=== PATIENT | female | born 1965 | race African-American/Black ===

== ENCOUNTER → 2017-08-05 | Outpatient (CLI) | payer MEDICARE, OTHER ==
--- NOTE | 2017-08-05 17:17 | WOMENS IMAGING REPORT ---
EXAM DESCRIPTION: 3D SCREENING MAMMO BILAT COMPLETED DATE/TIME: 08/05/2017 1:32 pm REASON FOR STUDY: ROUTINE SCREENING; Z12.31 Z12.31 ENCNTR SCREEN MAMMOGRAM FOR MALIGNANT NEOPLASM O F VIVIAN COMPARISON: Multiple since 2008 TECHNIQUE: Standard craniocaudal and mediolateral oblique views of each breast recorded using digita l acquisition and breast tomosynthesis. LIMITATIONS: None. FINDINGS: No masses, calcifications or architectural distortion. No areas of suspicion. Read with the assistance of CAD. .[facility] - R2 Cenova Version 1.3 .[facility] Imaging - R2 Cenova Version 1.3 .[facility] Imaging - R2 Cenova Version 2.4 .[facility] - R2 Cenova Version 2.4 .[facility] - R2 [employer] Version 9.2 IMPRESSION: NORMAL MAMMOGRAM. BIRADS 1. BREAST DENSITY: c. The breasts are heterogeneously dense, which may obscure small masses. BIRAD: 1 NEGATIVE RECOMMENDATION: ROUTINE SCREENING Please continue yearly bilateral screening tomosynthesis in July 2018 COMMENT: The patient has been notified of the results by letter per SA requirements. Additional no tification policies are in place for contacting patient with suspicious or incomplete findings. Quality ID #[id number]: The [employer] recommends an annual screening mammogram for women aged 40 years or over. This facility utilizes a reminder system to ensure that all patients receive reminder letters, and/or direct phone calls for appointments. This includes reminders for routine scr eening mammograms, diagnostic mammograms, or other Breast Imaging Interventions when appropriate. Th is patient will be placed in the appropriate reminder system. The [employer] (ACR) has developed recommendations for screening MRI of the breast s in certain patient populations, to be used in conjunction with mammography. Breast MRI surveillanc e may be appropriate for women with more than 20% lifetime risk of developing breast cancer as deter mined by genetic testing, significant family history of the disease, or history of mantle radiation f or Hodgkins Disease. ACR Practice Guidelines 2008. DBT Technology DBT is a type of tomographic mammography. With conventional mammography, overlapping breast tissue ma y make lesions difficult to detect, even with good compression. DBT uses an x-ray tube that rotates a round the breast, taking images at different angles. These images are then combined to create thin sl ices of the breast that the radiologist can view as a 3D reconstruction. The [employer] unit can perform full-field digital mammograms (2D imaging); or DBT (3D imaging); or both, in a combination mode that quickly performs both the mammogram and the tomosynthesis scan while the breast is still compressed. PQRS 6045F: Fluoroscopic imaging is not utilized for breast tomosynthesis. TECHNICAL DOCUMENTATION: FINDING NUMBER: (1) ASSESSMENT: (1) JOB ID: [id number] [employer]- All Rights Reserved
== END ==
LOC: WI 13:36
PROVIDERS: ATTEND Obstetrics & Gynecology
DX: Z12.31 Encounter for screening mammogram for malignant neoplasm of breast (principal)
CPT/HCPCS: 77063; G0202; 77067

== ENCOUNTER 2018-03-21 10:27 | Emergency (ER) | payer MEDICARE, OTHER ==
--- NOTE | 2018-03-21 11:04 | ER Document Report ---
ED General - General Chief Complaint: Sore Throat Stated Complaint: NECK SWELLING Time Seen by Provider: 03/21/18 10:40 Mode of Arrival: Medic Information source: Patient Notes: 52-year-old female with history of rheumatoid arthritis, hypertension presents via EMS from [facility] with complaint of neck swelling, sore throat. Patient states that she awoke this morning with a sore throat. She states she went [facility] and noticed that the swelling was rapidly increasing. She denies difficulty swallowing, fever, chills. She does admit to associated ear pain. She has not had any sick contacts. TRAVEL OUTSIDE OF THE [place] IN LAST 30 DAYS: No - HPI Onset: This morning Onset/Duration: Sudden Quality of pain: Burning Severity: Mild Associated symptoms: Earache. denies: Chest pain, Nonproductive cough, Fever, Headache, Hurts to breath, Shortness of breath Exacerbated by: Other - Swallowing Relieved by: Denies Similar symptoms previously: No Recently seen / treated by doctor: Yes - Related Data Allergies/Adverse Reactions: Unable to Assess Allergy (Unverified 03/21/18 10:40) Past Medical History - General Information source: Patient, Office - Social History Smoking Status: Current Some Day Smoker Frequency of alcohol use: Occasional Drug Abuse: Marijuana Lives with: Family Family History: Reviewed & Not Pertinent Patient has suicidal ideation: No Patient has homicidal ideation: No - Past Medical History Cardiac Medical History: Reports: Hx Hypertension Renal/ Medical History: Denies: Hx Peritoneal Dialysis Musculoskeltal Medical History: Reports Hx Arthritis Review of Systems - Review of Systems Notes: REVIEW OF SYSTEMS: CONSTITUTIONAL : Denies fever, chills, or sweats. Denies recent illness. Denies weight loss, recent hospitalizations. EENT: Denies visual changes, eye pain. Denies nasal or sinus congestion or discharge. Denies oral lesions, difficulty swallowing. CARDIOVASCULAR: Denies chest pain. Denies palpitations. Denies lower extremity edema. RESPIRATORY: Denies cough, cold, or chest congestion. Denies shortness of breath, wheezing. GASTROINTESTINAL: Denies abdominal pain or distention. Denies nausea, vomiting , or diarrhea. Denies blood in vomitus, stools, or per rectum. Denies black, tarry stools. Denies constipation. GENITOURINARY: Denies difficulty urinating, painful urination, frequency, blood in urine, or vaginal discharge. MUSCULOSKELETAL: Denies back or neck pain or stiffness. Denies joint pain or swelling. SKIN: Denies rash, lesions or sores. HEMATOLOGIC : Denies easy bruising or bleeding. LYMPHATIC: Denies swollen glands. NEUROLOGICAL: Denies confusion or altered mental status. Denies passing out or loss of consciousness. Denies dizziness or lightheadedness. Denies headache. Denies weakness or paralysis. Denies problems difficulty with ambulation, slurred speech. Denies sensory loss, numbness, or tingling. Denies seizures. PSYCHIATRIC: Denies anxiety or stress. Denies depression, suicidal ideation, or homicidal ideation. Denies visual or auditory hallucinations. Physical Exam - Vital signs Vitals: Temp Pulse Resp BP Pulse Ox 98.1 F 58 L 15 171/94 H 100 03/21/18 10:32 03/21/18 10:32 03/21/18 10:32 03/21/18 10:32 03/21/18 10:32 - Notes Notes: PHYSICAL EXAMINATION: GENERAL: Well-appearing, well-nourished and in no acute distress. HEAD: Atraumatic, normocephalic. EYES: Pupils equal round and reactive to light, extraocular movements intact, conjunctiva are normal. ENT: Mild erythema, no tonsillar swelling or exudates. Bilateral submandibular lymphadenopathy. No sublingual edema, dental caries, dental abscess. NECK: Normal range of motion. No stridor LUNGS: Breath sounds clear to auscultation bilaterally and equal. No wheezes rales or rhonchi. HEART: Regular rate and rhythm without murmurs ABDOMEN: Soft, nontender, nondistended abdomen. No guarding, no rebound. No masses appreciated. Female : deferred Musculoskeletal: Normal range of motion, no pitting or edema. No cyanosis. NEUROLOGICAL: Cranial nerves grossly intact. Normal speech, normal gait. Normal sensory, motor exams PSYCH: Normal mood, normal affect. SKIN: Warm, Dry, normal turgor, no rashes or lesions noted. Course - Re-evaluation Re-evalutation: 03/21/18 16:31 Laboratory 03/21/18 03/21/18 10:49 10:49 WBC 6.9 RBC 4.44 Hgb 11.9 L Hct 35.7 L MCV 80 MCH 26.7 L MCHC 33.3 RDW 15.2 H Plt Count 263 Seg Neutrophils % 58.9 Lymphocytes % 32.4 Monocytes % 6.3 Eosinophils % 1.6 Basophils % 0.8 Absolute Neutrophils 4.1 Absolute Lymphocytes 2.2 Absolute Monocytes 0.4 Absolute Eosinophils 0.1 Absolute Basophils 0.1 Sodium 143.6 Potassium 4.6 Chloride 102 Carbon Dioxide 34 H Anion Gap 8 BUN 18 Creatinine 1.14 Est GFR ( Amer) > 60 Est GFR (Non-Af Amer) 50 L Glucose 123 H Calcium 10.[address] 03/21/18 10:40 IMPRESSION: Tonsillitis. Significant narrowing of the nasopharynx. No abscess. 03/21/18 16:33 52-year-old female with history of rheumatoid arthritis, hypertension presents via EMS from [facility] with complaint of neck swelling, sore throat. Patient states that she awoke this morning with a sore throat. She states she went [facility] and noticed that the swelling was rapidly increasing. She denies difficulty swallowing, fever, chills. She does admit to associated ear pain. She has not had any sick contacts. No signs reviewed upon arrival patient is afebrile, mildly hypertensive but not hypoxic. She is in no respiratory distress. Exam is significant for mild tonsillar erythema without exudates, and submandibular lymphadenopathy. CT neck was obtained and showed no retropharyngeal abscess, evidence of Gary's angina but did show tonsillitis. Patient received IV Zosyn, Solu-Medrol during her ED course. On reevaluation patient is still resting comfortably, in no distress and is tolerating fluids. Patient be discharged home with a prescription for Augmentin and recommendations to follow up with her primary care physician in 3- 5 days. Patient provided the opportunity to ask questions, and express concerns. Discharge instructions discussed. Patient is agreeable with discharge home. Return indications explained and discussed with the patient who displays understanding. Patient encouraged to return to the emergency department immediately with any concerns. 03/21/18 16:33 - Vital Signs Vital signs: Temp Pulse Resp BP Pulse Ox 98.9 F 57 L 18 141/83 H 100 03/21/18 14:33 03/21/18 14:33 03/21/18 14:33 03/21/18 14:33 03/21/18 14:33 - Laboratory Result Diagrams: 03/21/18 10:49 03/21/18 10:49 Laboratory results interpreted by me: 03/21/18 03/21/18 10:49 10:49 Hgb 11.9 L Hct 35.7 L MCH 26.7 L RDW 15.2 H Carbon Dioxide 34 H Est GFR (Non-Af Amer) 50 L Glucose 123 H - Diagnostic Test Radiology reviewed: Image reviewed, Reports reviewed Discharge - Discharge Clinical Impression: Acute bacterial tonsillitis Condition: Good Disposition: HOME, SELF-CARE Instructions: Sore Throat ([facility]), Tonsillitis ([facility]) Additional Instructions: Return immediately to the emergency department if you experience difficulty swallowing or you are unable to take your antibiotics. Follow up with your physician tomorrow for further care or return to the ED IMMEDIATELY if symptoms worsen or new concerns occur. If you cannot afford to follow up with your primary care physician a list of low cost clinics have been provided at the end of your discharge papers as well. Prescriptions: Amox Tr/Potassium Clavulanate [Augmentin 875-125 Tablet] 1 tab PO BID 10 Days # 20 tablet Ibuprofen [Motrin 600 Mg Tablet] 600 mg PO TID #15 tablet Prednisone [Deltasone 20 mg Tablet] 3 tab PO DAILY 5 Days #15 tablet Referrals: MANDI HERMOSILLO MD [ACTIVE STAFF] - Follow up as needed
[2018-03-21 11:20] LABS: ANION GAP 8 (5-19); BLOOD UREA NITROGEN 18 mg/dL (7-20); CARBON DIOXIDE 34 mmol/L (22-30); CHLORIDE 102 mmol/L (98-107); GLUCOSE 123 mg/dL (75-110); POTASSIUM 4.6 mmol/L (3.6-5.0); SODIUM 143.6 mmol/L (137-145)
[2018-03-21] MEDS ORDERED: AMPICILLIN SOD/SULBACTAM 3 GM VIAL IV ONE (11:59)
[2018-03-21] MEDS ORDERED: DEXAMETHASONE 4 MG TABLET PO ONE (12:01)
--- NOTE | 2018-03-21 12:04 | RADIOLOGY REPORT (SQ) ---
EXAM DESCRIPTION: CT SOFT TISSUE NECK WITH COMPLETED DATE/TIME: 03/21/2018 11:47 am REASON FOR STUDY: concern for ludwigs COMPARISON: None. TECHNIQUE: Post IV contrasted scanning from skull base through lung apices with review of bone, soft tissue and lung windows. Reconstructed coronal and sagittal MPR images reviewed. All images stored on PACS. All CT scanners at this facility use dose modulation, iterative reconstruction, and/or weight based d osing when appropriate to reduce radiation dose to as low as reasonably achievable (ALARA). [facility]: Dose Right [facility]: CareDose [facility]: Dose Right [facility]: Teradose 4D [facility]: Lost My Name CONTRAST TYPE AND DOSE: contrast/concentration: Isovue 370.00 mg/ml; Total Contrast Delivered: 75.0 ml; Total Saline Delivered: 55.0 ml RENAL FUNCTION: BUN 18 creatinine 1.1 RADIATION DOSE: CT Rad equipment meets quality standard of care and radiation dose reduction techniq ues were employed. CTDIvol: 9.7 mGy. DLP: 286 mGy-cm. . LIMITATIONS: None. FINDINGS: SKULL BASE: Intact. MAJOR SALIVARY GLANDS: No solid or cystic masses. No inflammatory changes. LYMPHADENOPATHY: No adenopathy. MUCOSAL MASSES OR ASYMMETRY: There is swelling of the palatine tonsillar pillars bilaterally and fair ly symmetric. This results in significant narrowing of the inferior nasopharynx. No evidence of abs cess. LARYNX/CORDS: No abnormal findings. VASCULAR STRUCTURES: The major vessels are patent. LUNG APICES: Clear. BONES: Intact. THYROID: Incidental 1.5 cm left low-density lesion, probably a colloid cyst. PARANASAL SINUSES: Clear. OTHER: No other significant finding. IMPRESSION: Tonsillitis. Significant narrowing of the nasopharynx. No abscess. TECHNICAL DOCUMENTATION: JOB ID: [id number] Quality ID # [id number]: Final reports with documentation of one or more dose reduction techniques (e.g., Au tomated exposure control, adjustment of the mA and/or kV according to patient size, use of iterative reconstruction technique) 2010 [employer]- All Rights Reserved Reading location - IP/workstation name: [email or web address]
[2018-03-21 12:15] LABS: ABSOLUTE BASOPHILS # (AUTO) 0.1 10^3/uL (0.0-0.2); ABSOLUTE EOSINOPHILS # (AUTO) 0.1 10^3/uL (0.0-0.6); ABSOLUTE LYMPHOCYTES (AUTO) 2.2 10^3/uL (0.5-4.7); ABSOLUTE MONOCYTES (AUTO) 0.4 10^3/uL (0.1-1.4); ABSOLUTE NEUT (AUTO) 4.1 10^3/uL (1.7-8.2); BASOPHILS % (AUTO) 0.8 % (0-2); EOSINOPHILS % (AUTO) 1.6 % (0-6); HEMATOCRIT 35.7 % (36.0-47.0); HEMOGLOBIN 11.9 g/dL (12.0-15.5); LYMPHOCYTES % (AUTO) 32.4 % (13-45); MEAN CORPUSCULAR HEMOGLOBIN 26.7 pg (27.0-33.4); MEAN CORPUSCULAR HGB CONC 33.3 g/dL (32.0-36.0); MEAN CORPUSCULAR VOLUME 80 fl (80-97); MONOCYTES % (AUTO) 6.3 % (3-13); PLATELET COUNT 263 10^3/uL (150-450); RED BLOOD COUNT 4.44 10^6/uL (3.72-5.28); RED CELL DISTRIBUTION WIDTH 15.2 % (11.5-14.0); SEGMENTED NEUTROPHILS % (AUTO) 58.9 % (42-78); TOTAL CELLS COUNTED % (AUTO) 100 %; WHITE BLOOD COUNT 6.9 10^3/uL (4.0-10.5)
[2018-03-21 14:38] VITALS: BP 141/83
== END 2018-03-21 14:37 | disposition home or self-care (01) ==
LOC: ER 10:27
DX: J03.80 Acute tonsillitis due to other specified organisms (principal); B96.89 Other specified bacterial agents as the cause of diseases classified elsewhere; R59.0 Localized enlarged lymph nodes; H92.09 Otalgia, unspecified ear; I10 Essential (primary) hypertension; F17.200 Nicotine dependence, unspecified, uncomplicated
CPT/HCPCS: 99284; 96365; 36415; 85025; 80048; 70491; A9270; J0295

== ENCOUNTER 2018-04-24 09:22 | Observation (INO) | payer MEDICARE, OTHER ==
--- NOTE | 2018-04-24 09:50 | ER Document Report ---
ED Medical Screen (RME) - General Chief Complaint: Allergic Reaction Stated Complaint: FACIAL SWELLING Time Seen by Provider: 04/24/18 09:50 Notes: This is a 52-year-old female to the emergency department chief complaint of neck swelling, confusion, "fogginess". Patient states that she has on Humira. Was seen here a month ago and diagnosed with tonsillitis. States that the swelling has persisted. Pain is radiating from the neck down into her chest and back. Hurts to move her neck. Denies any throat pain however. I have greeted and performed a rapid initial assessment of this patient. A comprehensive ED assessment and evaluation of the patient, analysis of test results and completion of the medical decision making process will be conducted by additional ED providers. TRAVEL OUTSIDE OF THE [place] IN LAST 30 DAYS: No - Related Data Allergies/Adverse Reactions: Unable to Assess Allergy (Verified 04/24/18 09:24) Past Medical History - Social History Chew tobacco use (# tins/day): No Frequency of alcohol use: None Drug Abuse: None Family history: Reviewed & Not Pertinent - Past Medical History Cardiac Medical History: Reports: Hx Hypertension Renal/ Medical History: Denies: Hx Peritoneal Dialysis Musculoskeltal Medical History: Reports Hx Arthritis Review of Systems - Review of Systems Notes: Constitutional: denies: Chills, Diaphoresis, Fever, Malaise, Weakness EENT: Large amount of swelling to the neck. Pain in the back. No difficulty swallowing. No throat pain. No vision loss. Cardiovascular: denies: Palpitations, Heart racing, Orthopnea, Dyspnea, Chest pain Respiratory: denies: Cough, Hurts to breathe, Wheezing, Shortness of breath Gastrointestinal: denies: Abdominal pain, Diarrhea, Nausea, Vomiting, Black stools, bright red blood in stool Genitourinary: denies: Burning, Dysuria, Discharge, Frequency, Flank pain, Hematuria Musculoskeletal: Planing of upper neck and back pain. Hematologic/Lymphatic: denies: Anemia, Easy bleeding, Easy bruising, Blood clots Neurological/Psychological: denies: Confusion, Dementia, Depression, Loss of consciousness Skin: No lesions, no masses, no skin breakdown, no abscesses Physical Exam - Vital signs Vitals: Temp Pulse Resp BP Pulse Ox 99.0 F 102 H 20 127/83 H 99 04/24/18 09:37 04/24/18 09:37 04/24/18 09:37 04/24/18 09:37 04/24/18 09:37 Interpretation: Tachycardic - HEENT Head: Normocephalic Notes: There is significant amount of lymphadenopathy noted in the anterior neck mostly on the right. There is no pharyngeal edema or erythema. There is drainage clear mixed with blood coming out of the right ear. - Respiratory Respiratory status: No respiratory distress Chest status: Nontender Breath sounds: Normal Chest palpation: Normal - Cardiovascular Rhythm: Tachycardia Heart sounds: Normal auscultation Murmur: No - Abdominal Inspection: Normal Distension: No distension Bowel sounds: Normal Tenderness: Nontender Organomegaly: No organomegaly - Back Back: Normal, Tender - Tenderness to the left trapezius muscles - Extremities General upper extremity: Normal inspection, Nontender, Normal color, Normal ROM , Normal temperature General lower extremity: Normal inspection, Nontender, Normal color, Normal ROM , Normal temperature, Normal weight bearing. No: Jono's sign - Neurological Neuro grossly intact: Yes Cognition: Normal Orientation: AAOx4 Fidel Coma Scale Eye Opening: Spontaneous Fidel Coma Scale Verbal: Oriented [place] Coma Scale Motor: Obeys Commands [place] Coma Scale Total: 15 Speech: Normal Motor strength normal: LUE, RUE, LLE, RLE Sensory: Normal - Skin Skin Temperature: Warm Skin Moisture: Dry Skin Color: Other - Dry and red lesions on bilateral wrist areas. Course - Vital Signs Vital signs: Temp Pulse Resp BP Pulse Ox 99.0 F 102 H 19 132/103 H 98 04/24/18 09:37 04/24/18 09:37 04/24/18 11:03 04/24/18 10:39 04/24/18 11:03 - Laboratory Result Diagrams: 04/24/18 10:05 04/24/18 10:05 Laboratory results interpreted by me: 04/24/18 04/24/18 10:05 10:05 Hgb 11.5 L Hct 35.1 L MCV 79 L MCH 25.8 L RDW 14.3 H Est GFR (Non-Af Amer) 51 L Doctor's Discharge - Discharge Referrals: COOKIE JENKINS FNP [Primary Care Provider] - Follow up as needed
[2018-04-24 10:21] LABS: ABSOLUTE EOSINOPHILS # (AUTO) 0.2 10^3/uL (0.0-0.6); ABSOLUTE LYMPHOCYTES (AUTO) 2.2 10^3/uL (0.5-4.7); ABSOLUTE MONOCYTES (AUTO) 0.5 10^3/uL (0.1-1.4); ABSOLUTE NEUT (AUTO) 3.3 10^3/uL (1.7-8.2); BASOPHILS % (AUTO) 0.5 % (0-2); EOSINOPHILS % (AUTO) 2.6 % (0-6); HEMATOCRIT 35.1 % (36.0-47.0); HEMOGLOBIN 11.5 g/dL (12.0-15.5); LYMPHOCYTES % (AUTO) 35.7 % (13-45); MEAN CORPUSCULAR HEMOGLOBIN 25.8 pg (27.0-33.4); MEAN CORPUSCULAR HGB CONC 32.8 g/dL (32.0-36.0); MEAN CORPUSCULAR VOLUME 79 fl (80-97); MONOCYTES % (AUTO) 7.4 % (3-13); PLATELET COUNT 303 10^3/uL (150-450); RED BLOOD COUNT 4.45 10^6/uL (3.72-5.28); RED CELL DISTRIBUTION WIDTH 14.3 % (11.5-14.0); SEGMENTED NEUTROPHILS % (AUTO) 53.8 % (42-78); TOTAL CELLS COUNTED % (AUTO) 100 %; WHITE BLOOD COUNT 6.2 10^3/uL (4.0-10.5)
[2018-04-24 10:36] LABS: ALANINE AMINOTRANSFERASE 25 U/L (9-52); ALBUMIN 4.1 g/dL (3.5-5.0); ALKALINE PHOSPHATASE 48 U/L (38-126); ANION GAP 11 (5-19); ASPARTATE AMINO TRANSFERASE 21 U/L (14-36); BILIRUBIN,DIRECT 0.2 mg/dL (0.0-0.4); BILIRUBIN,TOTAL 0.5 mg/dL (0.2-1.3); BLOOD UREA NITROGEN 13 mg/dL (7-20); CALCIUM 9.8 mg/dL (8.4-10.2); CARBON DIOXIDE 30 mmol/L (22-30); CHLORIDE 101 mmol/L (98-107); GLUCOSE 102 mg/dL (75-110); SODIUM 142.3 mmol/L (137-145); TOTAL PROTEIN 7.6 g/dL (6.3-8.2)
--- NOTE | 2018-04-24 11:26 | RADIOLOGY REPORT (SQ) ---
EXAM DESCRIPTION: CT HEAD WITHOUT COMPLETED DATE/TIME: 04/24/2018 11:05 am REASON FOR STUDY: confusion COMPARISON: None. TECHNIQUE: Axial images acquired through the brain without intravenous contrast. Images reviewed wi th bone, brain and subdural windows. Additional sagittal and coronal reconstructions were generated. Images stored on PACS. All CT scanners at this facility use dose modulation, iterative reconstruction, and/or weight based d osing when appropriate to reduce radiation dose to as low as reasonably achievable (ALARA). [facility]: Dose Right [facility]: CareDose [facility]: Dose Right [facility]: Teradose 4D [facility]: Molecule Synth RADIATION DOSE: mGy. LIMITATIONS: None. FINDINGS: VENTRICLES: Normal size and contour. CEREBRUM: No masses. No hemorrhage. No midline shift. No evidence for acute infarction. Normal gra y/white matter differentiation. No areas of low density in the white matter. CEREBELLUM: No masses. No hemorrhage. No alteration of density. No evidence for acute infarction. EXTRAAXIAL SPACES: No fluid collections. No masses. ORBITS AND GLOBE: No intra- or extraconal masses. Normal contour of globe without masses. CALVARIUM: No fracture. PARANASAL SINUSES: No fluid or mucosal thickening. SOFT TISSUES: No mass or hematoma. OTHER: No other significant finding. IMPRESSION: NORMAL BRAIN CT WITHOUT CONTRAST. EVIDENCE OF ACUTE STROKE: NO. COMMENT: Quality ID # [id number]: Final reports with documentation of one or more dose reduction techniques (e.g., Automated exposure control, adjustment of the mA and/or kV according to patient size, use of iterative reconstruction technique) TECHNICAL DOCUMENTATION: JOB ID: [id number] [email or web address]- All Rights Reserved Reading location - IP/workstation name: [email or web address]
--- NOTE | 2018-04-24 12:05 | RADIOLOGY REPORT (SQ) ---
EXAM DESCRIPTION: CT SOFT TISSUE NECK WITH COMPLETED DATE/TIME: 04/24/2018 11:10 am REASON FOR STUDY: neck swelling abnd pain COMPARISON: CT brain same date CT chest same date TECHNIQUE: Post IV contrasted scanning from skull base through lung apices with review of bone, soft tissue and lung windows. Reconstructed coronal and sagittal MPR images reviewed. All images stored on PACS. All CT scanners at this facility use dose modulation, iterative reconstruction, and/or weight based d osing when appropriate to reduce radiation dose to as low as reasonably achievable (ALARA). [facility]: Dose Right [facility]: CareDose [facility]: Dose Right [facility]: Teradose 4D [facility]: [employer] CONTRAST TYPE AND DOSE: contrast/concentration: Isovue 350.00 mg/ml; Total Contrast Delivered: 80.0 ml; Total Saline Delivered: 55.0 ml RENAL FUNCTION: Creatinine 1.1 RADIATION DOSE: CT Rad equipment meets quality standard of care and radiation dose reduction techniq ues were employed. CTDIvol: 10.1 - 18.3 mGy. DLP: 952 mGy-cm. . LIMITATIONS: None. FINDINGS: SKULL BASE: Inferior brain parenchyma in the field of view is unremarkable MAJOR SALIVARY GLANDS: Normal size parotid and submandibular glands. No salivary stones or gross earle ivary masses. No submandibular or parotid duct calculi are identified. LYMPHADENOPATHY: No adenopathy. MUCOSAL MASSES OR ASYMMETRY: No mucosal masses or asymmetry. LARYNX/CORDS: No abnormal findings. VASCULAR STRUCTURES: The major vessels are patent. LUNG APICES: Clear. BONES: Mild diffuse degenerative changes in the cervical spine and C5-6 and C6-7 THYROID: Stable 14 mm nodule left lower pole thyroid gland PARANASAL SINUSES: Clear. OTHER: There is very mild skin thickening and subcutaneous edema along the upper neck soft tissues in the submandibular region without well-circumscribed abscess. These findings were discussed with Dr. Torres IMPRESSION: Mild skin thickening and subcutaneous edema along the submandibular region from focal ce llulitis. No abscess identified. TECHNICAL DOCUMENTATION: JOB ID: [id number] Quality ID # [id number]: Final reports with documentation of one or more dose reduction techniques (e.g., Au tomated exposure control, adjustment of the mA and/or kV according to patient size, use of iterative reconstruction technique) 2010 [employer]- All Rights Reserved Reading location - IP/workstation name: [email or web address]
--- NOTE | 2018-04-24 12:09 | RADIOLOGY REPORT (SQ) ---
EXAM DESCRIPTION: CT CHEST WITH COMPLETED DATE/TIME: 04/24/2018 11:10 am REASON FOR STUDY: chest neck and back pain and swelling COMPARISON: CT soft tissue neck today, and 03/21/2018 TECHNIQUE: CT scan of the chest performed using helical scanning technique with dynamic intravenous contrast injection. Images reviewed with lung, soft tissue and bone windows. Reconstructed coronal and sagittal MPR images reviewed. All images stored on PACS. All CT scanners at this facility use dose modulation, iterative reconstruction, and/or weight based d osing when appropriate to reduce radiation dose to as low as reasonably achievable (ALARA). [facility]: Dose Right [facility]: CareDose [facility]: Dose Right [facility]: Teradose 4D [facility]: [email or web address] CONTRAST TYPE AND DOSE: 80 mL of IV Omnipaque 350- low osmolar. RENAL FUNCTION: Creatinine 1.1 RADIATION DOSE: 10 mGy . LIMITATIONS: None. FINDINGS: LUNGS AND PLEURA: Minimal bibasilar atelectasis. No fluffy alveolar infiltrates worrisome for pulmonary edema or pneumonia. No pleural effusion. No pneumothorax. HILAR AND MEDIASTINAL STRUCTURES: No identified masses or abnormal nodes. HEART AND VASCULAR STRUCTURES: No aneurysm or dissection. No central pulmonary emboli. No pericardi al effusion. HARDWARE: None in the chest. UPPER ABDOMEN: Tiny stones in the gallbladder THYROID AND OTHER SOFT TISSUES: No masses. No adenopathy. BONES: No significant finding. OTHER: Report called to Dr. Torres IMPRESSION: UNREMARKABLE CT OF THE CHEST WITH IV CONTRAST. TECHNICAL DOCUMENTATION: JOB ID: [id number] Quality ID # [id number]: Final reports with documentation of one or more dose reduction techniques (e.g., Au tomated exposure control, adjustment of the mA and/or kV according to patient size, use of iterative reconstruction technique) 2010 [employer]- All Rights Reserved Reading location - IP/workstation name: [email or web address]
--- NOTE | 2018-04-24 13:02 | ER Document Report ---
ED General - General TRAVEL OUTSIDE OF THE [place] IN LAST 30 DAYS: No <ELI MONTE - Last Filed: 04/24/18 14:05> <ANGIE RUSSELL - Last Filed: 04/24/18 14:57> - General Chief Complaint: Allergic Reaction Stated Complaint: FACIAL SWELLING Time Seen by Provider: 04/24/18 09:50 Notes: This 52-year-old female patient with rheumatoid arthritis on Humira and methotrexate and blood pressure medication. She was seen here on 03/21/2018 complaining of neck swelling and sore throat. She did have a contrasted CT scan of the neck which was read as tonsillitis with significant narrowing of the nasopharynx. No abscess. She was treated with a 10 day course of Augmentin, and prednisone 60 mg daily for 5 days. She states she got better until about 2 weeks ago when she states her hands started peeling and she began having pain and swelling in the submandibular region bilaterally again. She also reports being in physical therapy where she was pulling down on marcia like equipment, and injured her left trapezius and scapular muscles. She complains of a painful swollen area in the muscles. She also reports that she has been breaking out on her upper back, her abdomen and chest, and had similar lesions on the thenar and hyperthenar aspects of her palms and volar wrists which progressed to now being dry scaling areas. She did see her primary care provider 3 days ago to complain about the left trapezius and scapular muscles pain and swelling. She got prescriptions for Tylenol with codeine and Flexeril. She did not mention the rash on her hands or other parts of her body when she saw her primary care provider 3 days ago. She also did not mention the 2 week history of worsening pain and swelling in her submandibular regions. When I told her that I thought the rash on her hands was very suspicious for eczema, she got quite defensive stating she had never had anything like that on her hands before. A contrasted CT scan was again done today and read as mild skin thickening and subcutaneous edema along the upper neck soft tissues in the submandibular regions from a focal cellulitis. CBC and chemistries on 03/21/2018 and again today are both normal and essentially unchanged. (ANGIE RUSSELL) - Related Data Allergies/Adverse Reactions: Unable to Assess Allergy (Verified 04/24/18 09:24) Past Medical History - General Information source: Patient - Social History Smoking Status: Never Smoker Cigarette use (# per day): No Chew tobacco use (# tins/day): No Frequency of alcohol use: None Drug Abuse: None Lives with: Family Family History: Reviewed & Not Pertinent Patient has suicidal ideation: No Patient has homicidal ideation: No - Past Medical History Cardiac Medical History: Reports: Hx Hypertension Renal/ Medical History: Denies: Hx Peritoneal Dialysis Musculoskeletal Medical History: Reports Hx Arthritis <ELI MONTE - Last Filed: 04/24/18 14:05> Review of Systems - Review of Systems Constitutional: No symptoms reported EENT: See HPI, Other - neck swelling Cardiovascular: No symptoms reported Respiratory: No symptoms reported Gastrointestinal: No symptoms reported Genitourinary: No symptoms reported Female Genitourinary: No symptoms reported Musculoskeletal: See HPI, Muscle pain, Muscle stiffness Skin: See HPI, Rash Hematologic/Lymphatic: No symptoms reported Neurological/Psychological: No symptoms reported -: Yes All other systems reviewed and negative <ELI MONTE - Last Filed: 04/24/18 14:05> Physical Exam <MELLELI - Last Filed: 04/24/18 14:05> <ANGIE RUSSELL - Last Filed: 04/24/18 14:57> - Vital signs Vitals: Temp Pulse Resp BP Pulse Ox 99.0 F 102 H 20 127/83 H 99 04/24/18 09:37 04/24/18 09:37 04/24/18 09:37 04/24/18 09:37 04/24/18 09:37 - Notes Notes: Physical Exam: General: Alert, appears well. HEENT: Normocephalic. Atraumatic. PERRL. Extraocular movements intact. Oropharynx clear. Airway is patent. Neck: Supple. Non-tender. Bilateral submandibular swelling with associated tenderness to palpation. Respiratory: No respiratory distress. Clear and equal breath sounds bilaterally. Cardiovascular: Regular rate and rhythm. Abdominal: Normal Inspection. Non-tender. No distension. Normal Bowel Sounds. Back: Left trapezius is somewhat swollen and tender with palpation. Left scapula musculature tenderness to palpation. Patien's pain response is exaggerated. No deformity or step off. Extremities: Moves all four extremities. Upper extremities: Normal inspection. Normal ROM. Lower extremities: Normal inspection. No edema. Normal ROM. Neurological: Normal cognition. AAOx4. Normal speech. Psychological: Exaggerated pain response Skin: Papular rash, some with whiteheads across the face, chest, abdomen, and upper back. Over the volar wrist/thenar eminence/hyperthenar eminence there is a dry scaly rash consistent with eczema. (ELI MONTE) Course - Laboratory Result Diagrams: 04/24/18 10:05 04/24/18 10:05 <ELI MONTE - Last Filed: 04/24/18 14:05> - Laboratory Result Diagrams: 04/24/18 10:05 04/24/18 10:05 - Diagnostic Test Radiology reviewed: Image reviewed, Reports reviewed - CT scan of the head is unremarkable, chest with contrast unremarkable, neck with contrast showed mild skin thickening and subcutaneous edema along the upper neck soft tissues in the submandibular regions from focal cellulitis. - Consults Dr. Chamorro Consulted provider: will come to ER <ANGIE RUSSELL - Last Filed: 04/24/18 14:57> - Vital Signs Vital signs: Temp Pulse Resp BP Pulse Ox 99.0 F 102 H 13 134/100 H 89 L 04/24/18 09:37 04/24/18 09:37 04/24/18 13:01 04/24/18 13:01 04/24/18 13:01 - Laboratory Laboratory results interpreted by me: 04/24/18 04/24/18 10:05 10:05 Hgb 11.5 L Hct 35.1 L MCV 79 L MCH 25.8 L RDW 14.3 H Est GFR (Non-Af Amer) 51 L Discharge <ELI MONTE - Last Filed: 04/24/18 14:05> - Discharge Admitting Provider: Hospitalist Unit Admitted: Medical Floor <ANGIE RUSSELL - Last Filed: 04/24/18 14:57> - Discharge Clinical Impression: Cellulitis of submandibular region, Viral rash, Immunosuppressed status, Erythematous rash Trapezius muscle strain Qualifiers: Encounter type: initial encounter Laterality: left Qualified Code(s): S46.812A - Strain of other muscles, fascia and tendons at shoulder and upper arm level, left arm, initial encounter Condition: Stable Disposition: ADMITTED OBSERVATION Scribe Attestation: 04/24/18 13:39 I personally performed the services described in the documentation, reviewed and edited the documentation which was dictated to the scribe in my presence, and it accurately records my words and actions. (ANGIE RUSSELL) Scribe Documentation - Scribe Written by Scribe:: Kaitlyn Tenorio, 04/24/2018 1410 acting as scribe for :: Isa <ELI MONTE - Last Filed: 04/24/18 14:05>
[2018-04-24] MEDS ORDERED: ACETAMINOPHEN 325 MG TABLET PO PRN (14:30)
[2018-04-24] MEDS ORDERED: PROMETHAZINE HCL INJ 25 MG/1 ML VIAL IV PRN (14:30)
[2018-04-24] MEDS ORDERED: TEMAZEPAM 7.5 MG CAPSULE PO PRN (14:30)
[2018-04-24] MEDS ORDERED: ENOXAPARIN SODIUM INJ 40 MG/0.4 ML DISP.SYRIN SUBCUT ONE (16:00)
[2018-04-24] MEDS: OXYCODONE-ACETAMINOPHEN 5-325 MG TABLET PO PRN ×2 (16:43→23:12)
[2018-04-24] MEDS ORDERED: CYCLOBENZAPRINE HCL 10 MG TABLET PO PRN (19:28)
--- NOTE | 2018-04-24 19:28 | PDOC H&P ---
History of Present Illness Admission Date/PCP: 04/24/18 14:55 JASMINA GOODMAN Patient complains of: Neck pain and sore throat and rash History of Present Illness: MARILYN BOCANEGRA is a 52 year old female This patient presents to the emergency room with multiple vague complaints of neck pain and sore throat and shoulder pain and swelling in generalized rashes. Patient was somewhat uncooperative in exam. She had been seen in the emergency room on March 21 and she was thought to have tonsillitis at the time and she was treated with a 10 day course of Augmentin and prednisone. She apparently got better until 2 weeks ago when she says she started having symptoms again. She states that her swelling is small however CT scan reveals mild skin thickening and subcutaneous edema along the upper neck soft tissue in the left submandibular region from a focal cellulitis. No other significant findings except for the rash that patient Patient does have a history of rheumatoid arthritis and she is on immunosuppressants including adalimumab as well as methotrexate. W Past Medical History Cardiac Medical History: Reports: Hypertension Musculoskeltal Medical History: Reports: Arthritis Past Surgical History Past Surgical History: Reports: None Social History Information Source: Patient Lives with: Family Smoking Status: Never Smoker - Advance Directive Resuscitation Status: Full Code Family History Family History: Reviewed & Not Pertinent Parental Family History Reviewed: Yes Children Family History Reviewed: Yes Sibling(s) Family History Reviewed.: Yes Medication/Allergy Home Medications: Acetaminophen with Codeine [Tylenol #3 Tablet] 1 tab PO Q6 04/24/18 Adalimumab [Humira] 40 mg SQ [id number] 04/24/18 Ammonium Lactate [Lac-Hydrin 12% Lotion 225Gm/Bottle] 1 applic TP BID 04/24/18 Cyclobenzaprine HCl [Flexeril 10 mg Tablet] 10 mg PO Q8 04/24/18 Lisinopril [Prinivil] 20 mg PO DAILY 04/24/18 Methotrexate Sodium [Methotrexate] 15 mg PO PAL@1000 04/24/18 Triamcinolone Acetonide [Aristocort 0.1% Cream 15 gm] 1 applic TP BID 04/24/18 Allergies/Adverse Reactions: Unable to Assess Allergy (Verified 04/24/18 09:24) Review of Systems All systems: reviewed and no additional remarkable complaints except as stated Physical Exam Vital Signs: Temp Pulse Resp BP Pulse Ox 99.0 F 102 H 16 134/100 H 98 04/24/18 09:37 04/24/18 09:37 04/24/18 19:00 04/24/18 13:01 04/24/18 19:00 General appearance: PRESENT: no acute distress, other - older looking than stated age Head exam: PRESENT: atraumatic, normocephalic Eye exam: PRESENT: conjunctiva pink, EOMI, PERRLA. ABSENT: scleral icterus Mouth exam: PRESENT: dry mucosa Throat exam: PRESENT: other - limited exam as patient uncooperative Neck exam: ABSENT: carotid bruit, JVD, lymphadenopathy, thyromegaly Respiratory exam: PRESENT: clear to auscultation maria c. ABSENT: rales, rhonchi, wheezes GI/Abdominal exam: PRESENT: normal bowel sounds, soft. ABSENT: distended, guarding, mass, organolmegaly, rebound, tenderness Rectal exam: PRESENT: deferred Neurological exam: PRESENT: alert, awake, oriented to person, oriented to place , oriented to time, oriented to situation, CN II-XII grossly intact. ABSENT: motor sensory deficit Psychiatric exam: PRESENT: anxious Skin exam: PRESENT: rash, vesicles Results Laboratory Results: 04/24/18 10:05 04/24/18 10:05 MCV 79 fl (80-97) L 04/24/18 10:05 MCH 25.8 pg (27.0-33.4) L 04/24/18 10:05 MCHC 32.8 g/dL (32.0-36.0) 04/24/18 10:05 RDW 14.3 % (11.5-14.0) H 04/24/18 10:05 Seg Neutrophils % 53.8 % (42-78) 04/24/18 10:05 Lymphocytes % 35.7 % (13-45) 04/24/18 10:05 Monocytes % 7.4 % (3-13) 04/24/18 10:05 Eosinophils % 2.6 % (0-6) 04/24/18 10:05 Basophils % 0.5 % (0-2) 04/24/18 10:05 Absolute Neutrophils 3.3 10^3/uL (1.7-8.2) 04/24/18 10:05 Absolute Lymphocytes 2.2 10^3/uL (0.5-4.7) 04/24/18 10:05 Absolute Monocytes 0.5 10^3/uL (0.1-1.4) 04/24/18 10:05 Absolute Eosinophils 0.2 10^3/uL (0.0-0.6) 04/24/18 10:05 Absolute Basophils 0.0 10^3/uL (0.0-0.2) 04/24/18 10:05 Chloride 101 mmol/L (98-107) 04/24/18 10:05 Carbon Dioxide 30 mmol/L (22-30) 04/24/18 10:05 Anion Gap 11 (5-19) 04/24/18 10:05 Est GFR ( Amer) > 60 (>60) 04/24/18 10:05 Est GFR (Non-Af Amer) 51 (>60) L 04/24/18 10:05 Glucose 102 mg/dL (75-110) 04/24/18 10:05 Calcium 9.8 mg/dL (8.4-10.2) 04/24/18 10:05 Total Bilirubin 0.5 mg/dL (0.2-1.3) 04/24/18 10:05 AST 21 U/L (14-36) 04/24/18 10:05 ALT 25 U/L (9-52) 04/24/18 10:05 Alkaline Phosphatase 48 U/L (38-126) 04/24/18 10:05 Total Protein 7.6 g/dL (6.3-8.2) 04/24/18 10:05 Albumin 4.1 g/dL (3.5-5.0) 04/24/18 10:05 Impressions: Head CT 04/24/18 09:52 IMPRESSION: NORMAL BRAIN CT WITHOUT CONTRAST. EVIDENCE OF ACUTE STROKE: NO. Soft Tissue Neck CT 04/24/18 09:52 IMPRESSION: Mild skin thickening and subcutaneous edema along the submandibular region from focal cellulitis. No abscess identified. Chest CT 04/24/18 09:53 IMPRESSION: UNREMARKABLE CT OF THE CHEST WITH IV CONTRAST. Assessment & Plan - Diagnosis (1) Cellulitis of submandibular region Is this a current diagnosis for this admission?: Yes Plan: We will place on clindamycin (2) Erythematous rash Is this a current diagnosis for this admission?: Yes Plan: Possibly eczema. Will refer to dermatology as outpatient if needed (3) Immunosuppressed status Is this a current diagnosis for this admission?: Yes Plan: Patient is on Humira as well as methotrexate (4) Trapezius muscle strain Qualifiers: Encounter type: initial encounter Laterality: left Qualified Code(s): S46.812A - Strain of other muscles, fascia and tendons at shoulder and upper arm level, left arm, initial encounter Is this a current diagnosis for this admission?: Yes Plan: ill place on muscle relaxant as well as NSAID as needed - Time Time Spent: 30 to 50 Minutes Medications reviewed and adjusted accordingly: Yes Anticipated discharge: Home Within: within 24 hours - Inpatient Certification Based on my medical assessment, after consideration of the patient's comorbidities, presenting symptoms, or acuity I expect that the services needed warrant INPATIENT care.: Yes Medical Necessity: Need Close Monitoring Due to Risk of Patient Decompensation, Risk of Complication if Not Cared For in Hospital
[2018-04-24] MEDS: PREDNISONE 20 MG TABLET PO SCH (22:50)
[2018-04-24] MEDS: TRIAMCINOLONE ACETONIDE 0.1% CREAM 15 GM TOP SCH (22:56)
[2018-04-24] MEDS: CLINDAMYCIN HCL 150 MG CAPSULE PO SCH (23:40)
[2018-04-24] MEDS ORDERED: FLUCONAZOLE 100 MG TABLET PO ONE (23:45)
[2018-04-25] MEDS: CLINDAMYCIN HCL 150 MG CAPSULE PO SCH ×3 (00:23→11:20)
[2018-04-25] MEDS: OXYCODONE-ACETAMINOPHEN 5-325 MG TABLET PO PRN ×2 (05:18→11:20)
[2018-04-25 06:47] LABS: HEMATOCRIT 31.6 % (36.0-47.0); HEMOGLOBIN 10.6 g/dL (12.0-15.5); MEAN CORPUSCULAR HEMOGLOBIN 26.2 pg (27.0-33.4); MEAN CORPUSCULAR HGB CONC 33.5 g/dL (32.0-36.0); MEAN CORPUSCULAR VOLUME 78 fl (80-97); PLATELET COUNT 273 10^3/uL (150-450); RED BLOOD COUNT 4.04 10^6/uL (3.72-5.28); RED CELL DISTRIBUTION WIDTH 14.2 % (11.5-14.0); WHITE BLOOD COUNT 5.5 10^3/uL (4.0-10.5)
[2018-04-25] MEDS ORDERED: LISINOPRIL 10 MG TABLET PO SCH (10:00)
[2018-04-25] MEDS ORDERED: DOCUSATE SODIUM 100 MG CAPSULE PO SCH (10:00)
[2018-04-25] MEDS ORDERED: (PENDING PHARMACY ID) (Lisinopril [Prinivil] 20 MG) PO SCH (10:00)
[2018-04-25] MEDS ORDERED: ENOXAPARIN SODIUM INJ 40 MG/0.4 ML DISP.SYRIN SUBCUT SCH (10:00)
[2018-04-25] MEDS: TRIAMCINOLONE ACETONIDE 0.1% CREAM 15 GM TOP SCH (10:06)
[2018-04-25] MEDS: PREDNISONE 20 MG TABLET PO SCH (10:07)
[2018-04-25 11:48] VITALS: BP 121/61
--- NOTE | 2018-04-25 12:45 | PDOC DISCHARGE SUMMARY ---
General - Admit/Disc Date/PCP Admission Date/Primary Care Provider: 04/24/18 14:55 JASMINA GOODMAN Discharge Date: 04/25/18 - Discharge Diagnosis (1) Cellulitis of submandibular region Is this a current diagnosis for this admission?: Yes (2) Erythematous rash Is this a current diagnosis for this admission?: Yes (3) Immunosuppressed status Is this a current diagnosis for this admission?: Yes (4) Trapezius muscle strain Is this a current diagnosis for this admission?: Yes - Additional Information Resuscitation Status: Full Code Discharge Diet: As Tolerated Discharge Activity: Activity As Tolerated Prescriptions: Oxycodone HCl/Acetaminophen [Percocet 5-325 mg Tablet] 1 tab PO Q6HP PRN #14 tablet PRN Reason: Clindamycin HCl [Cleocin 150 mg Capsule] 300 mg PO Q6 #56 capsule Prednisone [Deltasone 20 mg Tablet] 40 mg PO DAILY #10 tablet Home Medications: Acetaminophen with Codeine [Tylenol #3 Tablet] 1 tab PO Q6 04/24/18 Adalimumab [Humira Pen] 40 mg SQ [id number] 04/24/18 Ammonium Lactate [Lac-Hydrin 12% Lotion 225Gm/Bottle] 1 applic TP BID 04/24/18 Cyclobenzaprine HCl [Flexeril 10 mg Tablet] 10 mg PO Q8 04/24/18 Lisinopril [Prinivil] 20 mg PO DAILY 04/24/18 Methotrexate Sodium [Methotrexate] 15 mg PO PAL@1000 04/24/18 Triamcinolone Acetonide [Aristocort 0.1% Cream] 1 applic TP BID 04/24/18 Clindamycin HCl [Cleocin 150 mg Capsule] 300 mg PO Q6 #56 capsule 04/25/18 Oxycodone HCl/Acetaminophen [Percocet 5-325 mg Tablet] 1 tab PO Q6HP PRN #14 tablet 04/25/18 Prednisone [Deltasone 20 mg Tablet] 40 mg PO DAILY #10 tablet 04/25/18 History of Present Illness History of Present Illness: MARILYN BOCANEGRA is a 52 year old female This patient presents to the emergency room with multiple vague complaints of neck pain and sore throat and shoulder pain and swelling in generalized rashes. Patient was somewhat uncooperative in exam. She had been seen in the emergency room on March 21 and she was thought to have tonsillitis at the time and she was treated with a 10 day course of Augmentin and prednisone. She apparently got better until 2 weeks ago when she says she started having symptoms again. She states that her swelling is small however CT scan reveals mild skin thickening and subcutaneous edema along the upper neck soft tissue in the left submandibular region from a focal cellulitis. No other significant findings except for the rash that patient Patient does have a history of rheumatoid arthritis and she is on immunosuppressants including adalimumab as well as methotrexate. W Hospital Course Hospital Course: Patient was admitted for overnight observation due to complaints of difficulty with swallowing and sore throat. See H&P for full details. She was started on clindamycin for possible mild cellulitis although she had had a recent tonsillitis that was treated with antibiotics. Patient also had a rash which she said recently erupted and she also complained of muscle strain and spasm in the left trapezius area. Patient was started on prednisone and did not really seem to make a difference as high symptoms of muscle spasm we improved and she felt a lot better today. With no further deterioration in her status and with hemodynamic stability patient is been discharged home and she has been advised to follow-up with her PCP, ENT as well as supervisor [employer]. Physical Exam Vital Signs: Temp Pulse Resp BP Pulse Ox 98.4 F 89 18 121/61 100 04/25/18 11:47 04/25/18 11:47 04/25/18 11:47 04/25/18 11:47 04/25/18 11:47 Intake & Output 04/24/18 04/25/18 04/26/18 06:59 06:59 06:59 Intake Total 480 Balance 480 Weight 64.6 kg General appearance: PRESENT: no acute distress, well-developed, other - L facial swelling Head exam: PRESENT: atraumatic, normocephalic Eye exam: PRESENT: conjunctiva pink, EOMI, PERRLA. ABSENT: scleral icterus Ear exam: PRESENT: normal external ear exam Mouth exam: PRESENT: moist, tongue midline Neck exam: ABSENT: carotid bruit, JVD, lymphadenopathy, thyromegaly Respiratory exam: PRESENT: clear to auscultation maria c. ABSENT: rales, rhonchi, wheezes Cardiovascular exam: PRESENT: RRR. ABSENT: diastolic murmur, rubs, systolic murmur Pulses: PRESENT: normal dorsalis pedis pul Vascular exam: PRESENT: normal capillary refill GI/Abdominal exam: PRESENT: normal bowel sounds, soft. ABSENT: distended, guarding, mass, organolmegaly, rebound, tenderness Rectal exam: PRESENT: deferred Extremities exam: PRESENT: full ROM. ABSENT: calf tenderness, clubbing, pedal edema Neurological exam: PRESENT: alert, awake, oriented to person, oriented to place , oriented to time, oriented to situation, CN II-XII grossly intact. ABSENT: motor sensory deficit Psychiatric exam: PRESENT: appropriate affect, normal mood. ABSENT: homicidal ideation, suicidal ideation Skin exam: PRESENT: dry, intact, rash - Scattered maculopapular rashes which actually have improved in the last 24 hours with some vesicles, warm. ABSENT: cyanosis Results Laboratory Results: 04/25/18 06:19 04/25/18 06:19 WBC 5.5 RBC 4.04 Hgb 10.6 L Hct 31.6 L MCV 78 L MCH 26.2 L MCHC 33.5 RDW 14.2 H Plt Count 273 Impressions: Head CT 04/24/18 09:52 IMPRESSION: NORMAL BRAIN CT WITHOUT CONTRAST. EVIDENCE OF ACUTE STROKE: NO. Soft Tissue Neck CT 04/24/18 09:52 IMPRESSION: Mild skin thickening and subcutaneous edema along the submandibular region from focal cellulitis. No abscess identified. Chest CT 04/24/18 09:53 IMPRESSION: UNREMARKABLE CT OF THE CHEST WITH IV CONTRAST. Qualifiers - * PATIENT BEING DISCHARGED WITH ANY OF THE FOLLOWING DIAGNOSIS: No Plan Time Spent: Less than 30 Minutes
== END 2018-04-25 14:30 | disposition home or self-care (01) ==
LOC: ER 09:22 → EH 14:55 → 2N 20:20
PROVIDERS: ADMIT Internal Medicine; ATTEND Internal Medicine
DX: K12.2 Cellulitis and abscess of mouth (principal); L53.8 Other specified erythematous conditions; S46.812A Strain of other muscles, fascia and tendons at shoulder and upper arm level, left arm, initial encounter; X50.9XXA Other and unspecified overexertion or strenuous movements or postures, initial encounter; Y93.B1 Activity, exercise machines primarily for muscle strengthening; Y92.89 Other specified places as the place of occurrence of the external cause; M06.9 Rheumatoid arthritis, unspecified; Z79.899 Other long term (current) drug therapy
CPT/HCPCS: 99285; 96372; 36415 ×2; 85025; 85027; 80053; 70450; 70491; 71260; G0378 ×2; A9270 ×10; J1650 ×2; J3490 ×4; J7512

== ENCOUNTER → 2018-08-06 | Outpatient (CLI) | payer MEDICARE, OTHER ==
--- NOTE | 2018-08-06 15:06 | WOMENS IMAGING REPORT ---
EXAM DESCRIPTION: 3D SCREENING MAMMO BILAT COMPLETED DATE/TIME: 08/06/2018 1:54 pm REASON FOR STUDY: SCREENING MAMMO Z12.31 ENCNTR SCREEN MAMMOGRAM FOR MALIGNANT NEOPLASM OF VIVIAN Z53. 8 PROCEDURE AND TREATMENT NOT CARRIED OUT FOR OTHER REAS COMPARISON: Multiple since 2008 TECHNIQUE: Standard craniocaudal and mediolateral oblique views of each breast recorded using digita l acquisition and breast tomosynthesis. LIMITATIONS: None. FINDINGS: No masses, calcifications or architectural distortion. No areas of suspicion. Read with the assistance of CAD. .[facility] - R2 Cenova Version 1.3 .[facility] Imaging - R2 Cenova Version 1.3 .[facility] - R2 Cenova Version 2.4 .[facility] [place] R2 Cenova Version 2.4 .[facility] - R2 [employer] Version 9.2 IMPRESSION: NORMAL MAMMOGRAM. BIRADS 1. BREAST DENSITY: b. There are scattered areas of fibroglandular density. BIRAD: 1 NEGATIVE RECOMMENDATION: ROUTINE SCREENING Please continue yearly bilateral screening mammography/tomosynthesis in July 2019 COMMENT: The patient has been notified of the results by letter per SA requirements. Additional no tification policies are in place for contacting patient with suspicious or incomplete findings. Quality ID #[id number]: The [employer] recommends an annual screening mammogram for women aged 40 years or over. This facility utilizes a reminder system to ensure that all patients receive reminder letters, and/or direct phone calls for appointments. This includes reminders for routine scr eening mammograms, diagnostic mammograms, or other Breast Imaging Interventions when appropriate. Th is patient will be placed in the appropriate reminder system. The [employer] (ACR) has developed recommendations for screening MRI of the breast s in certain patient populations, to be used in conjunction with mammography. Breast MRI surveillanc e may be appropriate for women with more than 20% lifetime risk of developing breast cancer as deter mined by genetic testing, significant family history of the disease, or history of mantle radiation f or Hodgkins Disease. ACR Practice Guidelines 2008. DBT Technology DBT is a type of tomographic mammography. With conventional mammography, overlapping breast tissue ma y make lesions difficult to detect, even with good compression. DBT uses an x-ray tube that rotates a round the breast, taking images at different angles. These images are then combined to create thin sl ices of the breast that the radiologist can view as a 3D reconstruction. The Hologic unit can perform full-field digital mammograms (2D imaging); or DBT (3D imaging); or both, in a combination mode that quickly performs both the mammogram and the tomosynthesis scan while the breast is still compressed. PQRS 6045F: Fluoroscopic imaging is not utilized for breast tomosynthesis. TECHNICAL DOCUMENTATION: FINDING NUMBER: (1) ASSESSMENT: (1) JOB ID: [id number] [email or web address]- All Rights Reserved Reading location - IP/workstation name: [email or web address]
== END ==
LOC: WI 07-02 13:56
PROVIDERS: ATTEND Obstetrics & Gynecology
DX: Z12.31 Encounter for screening mammogram for malignant neoplasm of breast (principal)
CPT/HCPCS: 77063; 77067

== ENCOUNTER → 2019-09-03 | Outpatient (CLI) | payer MEDICARE, OTHER ==
--- NOTE | 2019-09-03 18:21 | WOMENS IMAGING REPORT ---
EXAM DESCRIPTION: 3D SCREENING MAMMO BILAT COMPLETED DATE/TIME: 09/03/2019 2:16 pm REASON FOR STUDY: Z12.31 SCREENING MAMMO Z12.31 ENCNTR SCREEN MAMMOGRAM FOR MALIGNANT NEOPLASM OF B RE COMPARISON: Multiple since 2008 EXAM PARAMETERS: Views: Standard craniocaudal and mediolateral oblique views of each breast recorded using digital acquisition and breast tomosynthesis. Read with the assistance of CAD. .[facility] - R2 Phone Counselor Version 9.2 LIMITATIONS: None. FINDINGS: No suspicious masses, suspicious calcifications or architectural distortion. No areas of c oncern. IMPRESSION: NEGATIVE MAMMOGRAM. BIRADS 1. BREAST DENSITY: b. There are scattered areas of fibroglandular density. BIRAD: ASSESSMENT: 1 NEGATIVE RECOMMENDATION: ROUTINE SCREENING Please continue yearly bilateral screening mammography/tomosynthesis in August 2020. COMMENT: The patient has been notified of the results by letter per SA requirements. Additional no tification policies are in place for contacting patient with suspicious or incomplete findings. Quality ID #[id number]: The [employer] recommends an annual screening mammogram for women aged 40 years or over. This facility utilizes a reminder system to ensure that all patients receive reminder letters, and/or direct phone calls for appointments. This includes reminders for routine scr eening mammograms, diagnostic mammograms, or other Breast Imaging Interventions when appropriate. Th is patient will be placed in the appropriate reminder system. TECHNICAL DOCUMENTATION: FINDING NUMBER: (1) ASSESSMENT: (1) JOB ID: [id number] [employer]- All Rights Reserved Reading location - IP/workstation name: [email or web address]
== END ==
LOC: WI 14:00
PROVIDERS: ATTEND Nurse Practitioner
DX: Z12.31 Encounter for screening mammogram for malignant neoplasm of breast (principal)
CPT/HCPCS: 77063; 77067

== ENCOUNTER → 2020-09-07 | Outpatient (CLI) | payer MEDICARE, OTHER ==
--- NOTE | 2020-09-07 14:14 | WOMENS IMAGING REPORT ---
EXAM DESCRIPTION: 3D SCREENING MAMMO BILAT IMAGES COMPLETED DATE/TIME: 09/07/2020 1:54 pm REASON FOR STUDY: Z12.31 ENCNTR SCREEN MAMMOGRAM FOR MALIGNANT NEOPLASM OF BREAST Z12.31 ENCNTR SCR EEN MAMMOGRAM FOR MALIGNANT NEOPLASM OF VIVIAN COMPARISON: 09/03/2019 and 08/06/2018. EXAM PARAMETERS: Views: Standard craniocaudal and mediolateral oblique views of each breast recorded using digital acquisition and breast tomosynthesis. Read with the assistance of CAD. .[facility] - [email or web address] Quality Control Lab Tech Version 9.2 LIMITATIONS: None. FINDINGS: No suspicious masses, suspicious calcifications or architectural distortion. No areas of c oncern. IMPRESSION: NEGATIVE MAMMOGRAM. BIRADS 1. BREAST DENSITY: b. There are scattered areas of fibroglandular density. BIRAD: ASSESSMENT: 1 NEGATIVE RECOMMENDATION: ROUTINE SCREENING COMMENT: The patient has been notified of the results by letter per MQSA requirements. Additional no tification policies are in place for contacting patient with suspicious or incomplete findings. Quality ID #[id number]: The [employer] recommends an annual screening mammogram for women aged 40 years or over. This facility utilizes a reminder system to ensure that all patients receive reminder letters, and/or direct phone calls for appointments. This includes reminders for routine scr eening mammograms, diagnostic mammograms, or other Breast Imaging Interventions when appropriate. Th is patient will be placed in the appropriate reminder system. TECHNICAL DOCUMENTATION: FINDING NUMBER: (1) ASSESSMENT: (1) JOB ID: [id number] 2010 [employer]- All Rights Reserved Reading location - IP/workstation name: [email or web address]
== END ==
LOC: WI 13:26
PROVIDERS: ATTEND Nurse Practitioner
DX: Z12.31 Encounter for screening mammogram for malignant neoplasm of breast (principal)
CPT/HCPCS: 77063; 77067